=== PATIENT | female | born 1995 | race Caucasian/White ===

== ENCOUNTER → 2023-02-05 | Outpatient (CLI) | payer OTHER, SELFPAY ==
[2023-02-05 10:10] LABS: Hematocrit 38.3 % (37-47); Hemoglobin 13.4 g/dL (12.0-15.0); Mean Corpuscular Hgb 30.3 pg (27.0-32.0); Mean Corpuscular Volume 86.7 fL (81-99); Mean Platelet Vol. 10.4 fl (6.2-12.0); Platelet Count 261 K/mm3 (150-450); RBC Distribution Width SD 38.4 fl (35.1-43.9); Red Blood Count 4.42 M/mm3 (4.2-5.4); White Blood Count 5.7 K/mm3 (4.4-11.0)
[2023-02-05 10:25] LABS: T4 Free Direct 1.01 ng/dL (0.76-1.46)
[2023-02-06 04:07] LABS: Thyroid Peroxidase AB < 9 IU/mL (0-34)
[2023-02-07 14:12] LABS: Chlamydia By Nucleic Acid AMP Negative (Negative); Gonococcus By Nucleic Acid AMP Negative (Negative)
[2023-02-11 22:09] LABS: HPV Reflexed? NOT INDICATED
== END | disposition home or self-care (01) ==
PROVIDERS: PCP Nurse Practitioner Primary Care; Referring Provider Obstetrics & Gynecology; Visit Provider Obstetrics & Gynecology
DX: Z12.4 Encounter for screening for malignant neoplasm of cervix (principal); Z11.3 Encounter for screening for infections with a predominantly sexual mode of transmission; N92.0 Excessive and frequent menstruation with regular cycle; N94.6 Dysmenorrhea, unspecified; Z13.29 Encounter for screening for other suspected endocrine disorder
CPT/HCPCS: 36415; 84439; 84443; 85027; 86376; 87491; 87591; 88175; G0145

== ENCOUNTER → 2023-02-10 | Outpatient (CLI) | payer OTHER, SELFPAY ==
--- NOTE | 2023-02-10 15:16 | US_ITS ---
STUDY: ULTRASOUND OF THE FEMALE PELVIS - COMPLETE REASON FOR EXAM: Female, 27 years old. menorrhagia LMP: 01/17/2023 TECHNIQUE: Transabdominal and Transvaginal TECHNICAL QUALITY: Adequate. COMPARISON: None. FINDINGS: The uterus is anteverted and is tilted to the right side of the pelvis. The uterus measures 8.0 x 5.7 x 4.8 cm. Normal uterine cervix. The endometrium measures 15 mm in thickness, and is hyperechoic. There is no demonstrated endometrial mass. There is no demonstrated myometrial mass. I.U.D. - The patient does not have an I.U.D. The right ovary is visualized. The right ovary measures 3.4 x 2.0 x 2.9 cm. There is a 2.1 cm right ovarian cyst. There is no visualized right adnexal mass or complex lesion. There is normal arterial and normal venous vascularity. The left ovary is visualized. The left ovary measures 3.3 x 1.9 x 1.5 cm. There is no left ovarian cyst or ovarian mass. There is no visualized left adnexal mass or complex lesion. There is normal arterial and normal venous vascularity. There is mild fluid in the cul-de-sac. The pre void volume of the bladder was 318 ml. US/Pelvic w/ Transvaginal IMPRESSION: Thickened endometrial echoes. Small amount of free fluid. 2.1 cm right ovarian cyst. No other definite acute or significant abnormality seen. Electronically Signed: Roberto Smyth MD at 18:59 EDT ,
== END | disposition home or self-care (01) ==
LOC: US 15:15
PROVIDERS: PCP Nurse Practitioner Primary Care; Referring Provider Obstetrics & Gynecology; Visit Provider Obstetrics & Gynecology
DX: N92.0 Excessive and frequent menstruation with regular cycle (principal)
CPT/HCPCS: 76830; 76856

== ENCOUNTER → 2024-06-13 | Outpatient (CLI) | payer OTHER, SELFPAY ==
[2024-06-16 15:07] LABS: Immunoglobulin A 99 mg/dL (87-352); t-Transglutaminase IgA <2 U/mL (0-3)
[2024-06-18 23:06] LABS: Clam <0.10 kU/L (Class 0); Codfish <0.10 kU/L (Class 0); Corn 0.22 kU/L (Class 0/I); Egg, White <0.10 kU/L (Class 0); Gluten <0.10 kU/L (Class 0); Milk (Cow) <0.10 kU/L (Class 0); Peanut <0.10 kU/L (Class 0); SCALLOP <0.10 kU/L (Class 0); SESAME SEED 0.23 kU/L (Class 0/I); Shrimp 0.17 kU/L (Class 0/I); Soybean <0.10 kU/L (Class 0); Walnut, (Food) <0.10 kU/L (Class 0); Wheat 0.25 kU/L (Class 0/I)
== END | disposition home or self-care (01) ==
LOC: LAB 15:30
PROVIDERS: PCP Nurse Practitioner Primary Care; Referring Provider Otolaryngology; Visit Provider Otolaryngology
DX: T78.40XA Allergy, unspecified, initial encounter (principal); X58.XXXA Exposure to other specified factors, initial encounter; R19.7 Diarrhea, unspecified
CPT/HCPCS: 36415; 82784; 83516; 86003

== ENCOUNTER → 2024-11-03 | Outpatient (CLI) | payer OTHER, SELFPAY ==
--- NOTE | 2024-11-03 08:53 | US_ITS ---
PROCEDURE: BREAST LIMITED UNILATERAL 11/03/2024 REASON FOR EXAM: Right breast lump. TECHNIQUE: Targeted right breast ultrasound. COMPARISON: Prior mammogram dated November 03, 2024. FINDINGS: Right breast ultrasound was targeted to the lateral aspect of the right breast.. There is an 8 mm x 6 mm x 4 mm hypoechoic nodule with a central fatty hilum at the 10 o'clock position of the breast at 8 cm from the nipple. This most likely represents a small lymph node. A similar- appearing hypoechoic nodule with central echogenicity at the 10 o'clock position of the breast at 9 cm from the nipple suggestive of a small lymph node. US/Breast Limited Unilateral IMPRESSION: Findings suggestive of 2, subcentimeter lymph nodes at the 10 o'clock position of the breast at 9 and 8 cm from the nipple. Follow-up code: Routine Follow-up BI-RADS category 2 Reading Location: [place] [id number]
--- NOTE | 2024-11-03 08:53 | BI_ITS ---
EXAM: DIAG MAMM W/CAD, BILAT 11/03/2024 CLINICAL HISTORY: F, Age 29 y/o,. Right BREAST LUMP No family history. TECHNIQUE: Bilateral Diagnostic digital breast tomosynthesis with 2D and 3D images. Computer aided detection. COMPARISON: Baseline study. FINDINGS: TISSUE DENSITY: The breast tissue is heterogenously dense, which may obscure small masses. Bilateral Breast Mammographic Findings: No significant masses, calcifications or other abnormalities are identified. Benign-appearing bilateral axillary lymph nodes. 5.3 mm well-defined nodule in the central slightly inferior aspect of the right breast. BI/DIAG MAMM W/CAD, BILAT IMPRESSION: OVERALL FINAL ASSESSMENT: BIRADS 0 Incomplete: Need additional imaging evaluati on and/or prior mammograms for comparison.. RECOMMENDATION: Targeted sonographic correlation of the palpable lump in the right breast. A letter with findings and recommendations will be mailed to the patient. Reading Location: [place] [id number]
== END | disposition home or self-care (01) ==
PROVIDERS: PCP Nurse Practitioner Primary Care; Referring Provider Registered Nurse; Visit Provider Registered Nurse
DX: N63.0 Unspecified lump in unspecified breast (principal)
CPT/HCPCS: 76642; 77062; 77066; G0279